=== PATIENT | male | born 1985 | race Caucasian/White ===

== ENCOUNTER 2016-11-18 11:44 | Inpatient (IN) | payer BC ==
[2016-11-18 11:47] VITALS: O2SAT 100
--- NOTE | 2016-11-18 11:54 | ED PDOC ---
Psych Transfer Clearance - Clearance Statement Clearance Statement: Reviewed vital signs, lab results and transfer papers. Patient clinically stable for psychiatric admission.
[2016-11-18] MEDS ORDERED: Magnesium Hydroxide Susp 30 ml UD PO PRN (12:25)
[2016-11-18] MEDS ORDERED: Alum-Mag Hydrox-Simethicone Susp (30 mL) PO PRN (12:25)
[2016-11-18] MEDS ORDERED: DiphenhydrAMINE 50 mg/ml Inj IM PRN (12:25)
--- NOTE | 2016-11-18 13:02 | PCM.PSYCH ---
Initial Psychiatric Evaluation - Initial Psychiatric Evaluation Type of Admission: Voluntary Legal Status: Capacity Chief Complaint (in patient's own words): "I'm anxious" Patient's Reaction to Hospitalization: HPI: 31 yo male transferred from [facility], presented w/ acute anxiety, disorganized behavior and paranoia, including reports that he believes that his food is being poisoned. Patient does reports feeling "stressed" and is worried about eating food because he believes he is being poisoned, but does not know by whom or why. He also reports washing his hands > 10 times a day, but denies other obsessive/compulsive thoughts. Denies depression/suicidal ideation/eliceo. Negative Assembler informed the patient that he would benefit from treatment with an antipsychotic. Patient states that he will not take any medications at this time because he does not believe he needs them. Decreased appetite/food intake due to paranoia. Collateral history from the chart from the father- Escobar Silva [phone] : "Pt's symptoms became in June 2016 in which PT has become increasingly more distractible, internally pre-occupied, "tense"/"irritable", with a decrease in sleep/appetite; More recently, Pt has had thoughts that his food has been poisoned, which has decreased his appetite and willingness to eat; Pt has also [exhibited] soem signs of compulsive behavior, in which PT has repeatedly walked in and out of the house without provocation; Pt has no known hx of suicide/homicide, substance abuse, nor violence; Pt does have a paternal aunt who may have a hx of "OCD" and a maternal uncle who has symptoms of "delusional" thinking." PPhx: Hx of treatment w/ Xanax. Outpatient tx w/ Dr. Aguilar (therapist) since 07/2016; No past psychiatric admissions MHx: None All: NKDA FHx: Possible family hx of OCD and psychosis SHx: Drinks etoh a few times/week; no h/o etoh withdrawal. No legal history. No history. Used marijuana twice in his life, no current illicit drug use. 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 Lives w/ parents and brother. Current Medications: Active Medications Generic Name Dose Route Start Last Admin Trade Name Freq PRN Reason Stop Dose Admin Acetaminophen 650 mg 11/18/16 12:25 Tylenol 325mg Tab PO Q4 PRN Pain, moderate (4-7) Al Hydrox/Mg Hydrox/Simethicone 30 ml 11/18/16 12:25 Maalox Plus 30 Ml PO Q4 PRN Dyspepsia Diphenhydramine HCl 50 mg 11/18/16 12:25 Benadryl IM Q6 PRN Extrapyramidal S/S Unable PO Diphenhydramine HCl 50 mg 11/18/16 12:25 Benadryl PO Q6 PRN Extrapyramidal Symptoms Haloperidol 5 mg 11/18/16 12:25 Haldol PO Q4 PRN Agitation Haloperidol Lactate 5 mg 11/18/16 12:25 Haldol IM Q4 PRN Agitation, Unable to Take PO Lorazepam 2 mg 11/18/16 12:25 Ativan IM Q4 PRN Anxiety/Agitation,Unable PO Lorazepam 2 mg 11/18/16 12:25 Ativan PO Q4 PRN Anxiety/Agitation Magnesium Hydroxide 30 ml 11/18/16 12:25 Milk Of Magnesia PO HS PRN Constipation Past Psychiatric History - Past Psychiatric History Previous Treatment History: None Pertinent Medical Hx (Current Medical&Sleep Prob, Allergies): Allergies Allergy/AdvReac Type Severity Reaction Status Date / Time Unobtainable Allergy Verified 11/18/16 11:53 Review of Systems - Review of Systems All systems: reviewed and no additional remarkable complaints except - Psychiatric Psychiatric: As Per HPI, Anxiety, Irritability, Paranoia Mental Status Examination - Personal Presentation Personal Presentation: Looks stated age - Affect Affect: Broad - Motor Activity Motor Activity: Calm - Reliability in Providing Information Reliability in Providing Information: Good - Speech Speech: Organized - Mood Mood: Anxious - Formal Thought Process Formal Thought Process: Delusions, Paranoia - Obsessions/Compulsions Obsessions: No Compulsions: No - Cognitive Functions Orientation: Person, Place, Situation, Time Sensorium: Alert Attention/Concentration: Attentive Estimate of Intelligence: Average Judgement: Imparied, as evidence by: Lack of insight into illness Memory: Recent intact, as evidence by: Ability to recall events of the day, Remote intact, as evidenced by: Abilit to recall sig. life events, Remote intact , as evidenced by: Ability to recall historical events - Strength & Assets Inventory Strength & Assets Inventory: Intelligence, Cooperative DSM 5 DX - DSM 5 DSM 5 Diagnosis: Psychosis unspecified, Anxiety unspecified - Recommended/Plan of Treatment Treatment Recommendations and Plan of Treatment: 31 yo male w/ no significant past psychiatric history, presents w/ paranoia and anxiety, w/ poor insight to his paranoia and need for medications. -Admit to psychiatry -Patient refusing to take psychotropic medications at this time, will continue to discuss with the patient -Medicine consult -Individual and group therapy -Obtain collateral history Projected ELOS: 4-7 days Discharge Plan and Discharge Criteria: Discharge when psychiatrically stable
--- NOTE | 2016-11-18 16:49 | CP.PCM.PCO ---
Physician Communication Note - Physician Communication Note Physician Communication Note: Patient did NOT want to be examined/evaluated and wants to Sign AMA
--- NOTE | 2016-11-19 10:57 | PCM.PYCHPN ---
Psychiatric Progress Note - Psychiatric Progress Note Patient seen today, length of contact: Patient evaluated, case discussed with team, chart reviewed Patient Chief Complaint: "Nothing is wrong with me" Problems Identified/Issues Discussed: Patient signed a 48 hour letter yesterday requesting discharge. He was perseverative about leaving, demanding that staff let him leave immediately. Security had to be called because the patient was agitated and aggressive, eventually he had to be given IM medication for acute agitation. This morning the patient continues to have poor insight into his paranoia and is demanding to leave. Patient was informed that he was be screened by [facility] [place] for possible involuntary admission. Medication Change: No (Patient refusing psychotropic medications) Medical Record Reviewed: Yes Consults ordered or reviewed: Patient refused to be evaluated by the medicine consult. Mental Status Examination - Cognitive Function Orientation: Person, Place, Situation, Time Memory: Intact Attention: WNL Concentration: WNL Association: [facility] Fund of Knowledge: [facility] Decription of patient's judgement and insights: Poor insight/judgment - Mood Mood: Anxious - Affect Affect: Broad - Speech Speech: Appropriate - Formal Thought Process Formal Thought Process: Delusions, Paranoia Psychotic Thoughts and Behaviors: +Continued paranoia - Suicidal Ideation Suicidal Ideation: No - Homicidal Ideation Homicidal Ideation: No Goal/Treatment Plan - Goal/Treatment Plan Need for Continued Stay: Remain at risks for inpatient hospitalization, Discharge may exacerbated symptoms Progress Toward Problem(s) and Goals/Treatment Plan: 31 yo male w/ no significant past psychiatric history, presents w/ paranoia and anxiety, w/ poor insight into his paranoia and need for medications. -Screen for involuntary admission -Patient refusing to take psychotropic medications at this time, will continue to discuss with the patient -Medicine consult refused by the patient -Individual and group therapy -Obtain collateral history
--- NOTE | 2016-11-20 13:16 | PCM.PYCHPN ---
Psychiatric Progress Note - Psychiatric Progress Note Patient seen today, length of contact: in treatment team Patient Chief Complaint: i want to leave Problems Identified/Issues Discussed: pt states he does not think he needs medications, nor does he need to be in the hospital. he seems to not have understood the meeting with [facility] screener and is unaware that he has been accepted there for further assessment. he is anxious, he was able to hear the explanation of his current status. he continues to minimize his symptoms/behaviors. he continues to refuse to consider medications. Medication Change: No (Patient refusing psychotropic medications) Medical Record Reviewed: Yes Mental Status Examination - Cognitive Function Orientation: Person, Place, Situation, Time Memory: Intact Attention: WNL Concentration: WNL Association: WNL Fund of Knowledge: [facility] Decription of patient's judgement and insights: poor insight. fair behavioral control - Mood Mood: Anxious - Affect Affect: Broad - Speech Speech: Appropriate - Formal Thought Process Formal Thought Process: Delusions, Paranoia - Suicidal Ideation Suicidal Ideation: No - Homicidal Ideation Homicidal Ideation: No Goal/Treatment Plan - Goal/Treatment Plan Need for Continued Stay: Remain at risks for inpatient hospitalization, Discharge may exacerbated symptoms Progress Toward Problem(s) and Goals/Treatment Plan: psychotic disorder, unspecified continue current treatment and encourage pt to take medications awaiting transfer to [facility] Estimated Date of D/C: 11/21/16
--- NOTE | 2016-11-21 11:06 | PCM.PYCHPN ---
Psychiatric Progress Note - Psychiatric Progress Note Patient seen today, length of contact: discussed with team Patient Chief Complaint: i want to leave Problems Identified/Issues Discussed: pt waiting for transfer to [facility]. he is still questioning why he is being transfered and minimizing his symptoms that lead to the admission. he is irritable at times. Medication Change: No (Patient refusing psychotropic medications) Medical Record Reviewed: Yes Mental Status Examination - Cognitive Function Orientation: Person, Place, Situation, Time Memory: Intact Attention: WNL Concentration: WNL Association: WNL Fund of Knowledge: WNL Decription of patient's judgement and insights: poor insight. fair behavioral control - Mood Mood: Anxious - Affect Affect: Broad - Speech Speech: Appropriate - Formal Thought Process Formal Thought Process: Delusions, Paranoia Psychotic Thoughts and Behaviors: iinternally preoccupied, paranoid - Suicidal Ideation Suicidal Ideation: No - Homicidal Ideation Homicidal Ideation: No Goal/Treatment Plan - Goal/Treatment Plan Need for Continued Stay: Remain at risks for inpatient hospitalization, Discharge may exacerbated symptoms Progress Toward Problem(s) and Goals/Treatment Plan: psychotic disorder, unspecified continue current treatment and encourage pt to take medications awaiting transfer to [facility] when bed is available Estimated Date of D/C: 11/21/16
--- NOTE | 2016-11-22 12:10 | PCM.PYCHPN ---
Psychiatric Progress Note - Psychiatric Progress Note Patient seen today, length of contact: discussed with team Patient Chief Complaint: i think i am getting better Problems Identified/Issues Discussed: met with pt and social media marketing manager. pt is less anxious. eating only food from home. he continues to feel "i only had just a bad week." and does not think he needs to take medication. he seems a bit more able to process information regarding the process of going to [facility]. he is participating in treatment groups on the unit. Medication Change: No (Patient refusing psychotropic medications) Medical Record Reviewed: Yes Mental Status Examination - Cognitive Function Orientation: Person, Place, Situation, Time Memory: Intact Attention: WNL Concentration: WNL Association: WNL Fund of Knowledge: WNL Decription of patient's judgement and insights: poor but improving insight. fair behavioral control - Mood Mood: Anxious - Affect Affect: Broad - Speech Speech: Appropriate - Formal Thought Process Formal Thought Process: Delusions, Paranoia Psychotic Thoughts and Behaviors: iinternally preoccupied, paranoid - Suicidal Ideation Suicidal Ideation: No - Homicidal Ideation Homicidal Ideation: No Goal/Treatment Plan - Goal/Treatment Plan Need for Continued Stay: Remain at risks for inpatient hospitalization, Discharge may exacerbated symptoms Progress Toward Problem(s) and Goals/Treatment Plan: psychotic disorder, unspecified continue current treatment and encourage pt to take medications awaiting transfer to [facility] when bed is available Estimated Date of D/C: 11/21/16
--- NOTE | 2016-11-24 10:30 | PCM.PYCHPN ---
Psychiatric Progress Note - Psychiatric Progress Note Patient seen today, length of contact: discussed with team Patient Chief Complaint: i feel the medicine inside my system Problems Identified/Issues Discussed: pt less anxious. states the medicine makes him feel a little tired and notes an improvement in his sleep. he is denying any other side effects. still paranoid, but seems a bit more comfortable around his peers. Medication Change: Yes (started risperdal) Medical Record Reviewed: Yes Mental Status Examination - Cognitive Function Orientation: Person, Place, Situation, Time Memory: Intact Attention: WNL Concentration: WNL Association: WNL Fund of Knowledge: WNL Decription of patient's judgement and insights: improved insight. fair judgment - Mood Mood: Anxious - Affect Affect: Broad - Speech Speech: Appropriate - Formal Thought Process Formal Thought Process: Delusions, Paranoia Psychotic Thoughts and Behaviors: paranoid - Suicidal Ideation Suicidal Ideation: No - Homicidal Ideation Homicidal Ideation: No Goal/Treatment Plan - Goal/Treatment Plan Need for Continued Stay: Remain at risks for inpatient hospitalization, Discharge may exacerbated symptoms Progress Toward Problem(s) and Goals/Treatment Plan: psychotic disorder, unspecified have started risperdal 0.25mg am /hs will increase tomorrow to 0.25/ 0.5mg encourage participation in groups disposition planning Estimated Date of D/C: 11/21/16
[2016-11-24 16:02] VITALS: TEMP 97.7
--- NOTE | 2016-11-25 10:13 | PCM.PYCHPN ---
Psychiatric Progress Note - Psychiatric Progress Note Patient seen today, length of contact: discussed with team Patient Chief Complaint: i feel a little better Problems Identified/Issues Discussed: pt now eating hospital food as well as the food from home. he is taking medications and denies side effects. he feels medication is helpful. he reports improved sleep. Medication Change: Yes (increase risperdal) Medical Record Reviewed: Yes Mental Status Examination - Cognitive Function Orientation: Person, Place, Situation, Time Memory: Intact Attention: WNL Concentration: WNL Association: WNL Fund of Knowledge: WNL Decription of patient's judgement and insights: improved insight. fair judgment - Mood Mood: Anxious - Affect Affect: Broad - Speech Speech: Appropriate - Formal Thought Process Formal Thought Process: Delusions, Paranoia Psychotic Thoughts and Behaviors: paranoid - Suicidal Ideation Suicidal Ideation: No - Homicidal Ideation Homicidal Ideation: No Goal/Treatment Plan - Goal/Treatment Plan Need for Continued Stay: Remain at risks for inpatient hospitalization, Discharge may exacerbated symptoms Progress Toward Problem(s) and Goals/Treatment Plan: psychotic disorder, unspecified increase tomorrow to 0.5mg by mouth twice daily encourage participation in groups disposition planning Estimated Date of D/C: 11/21/16
--- NOTE | 2016-11-26 10:54 | PCM.PYCHPN ---
Psychiatric Progress Note - Psychiatric Progress Note Patient seen today, length of contact: discussed with team Patient Chief Complaint: i feel it helping Problems Identified/Issues Discussed: pt with improved socialization, less anxious. appetite is improved. he has had good visits with family. no aggression. Medication Change: No ( ) Medical Record Reviewed: Yes Mental Status Examination - Cognitive Function Orientation: Person, Place, Situation, Time Memory: Intact Attention: WNL Concentration: WNL Association: WNL Fund of Knowledge: WNL Decription of patient's judgement and insights: improved insight. fair judgment - Mood Mood: Anxious - Affect Affect: Broad - Speech Speech: Appropriate - Formal Thought Process Formal Thought Process: Delusions, Paranoia Psychotic Thoughts and Behaviors: less paranoid - Suicidal Ideation Suicidal Ideation: No - Homicidal Ideation Homicidal Ideation: No Goal/Treatment Plan - Goal/Treatment Plan Need for Continued Stay: Remain at risks for inpatient hospitalization, Discharge may exacerbated symptoms Progress Toward Problem(s) and Goals/Treatment Plan: psychotic disorder, unspecified continue risperdal 0.5mg by mouth twice daily encourage participation in groups disposition planning Estimated Date of D/C: 11/21/16
[2016-11-27 09:44] VITALS: BP 128/75; PULSE 73; RESP 17
--- NOTE | 2016-11-27 13:04 | PCM.PYCHDC ---
Mental Status Examination - Mental Status Examination Orientation: Person, Place, Situation, Time Memory: Intact Mood: Anxious Affect: Broad Speech: Appropriate Attention: WNL Concentration: WNL Association: WNL Fund of Knowledge: WNL Formal Thought Process: No Impairment Description of patient's judgement and insight: good insight. good judgment Psychotic Thoughts and Behaviors: denies any a/v halluinations. less paranoid. less guarded and thoughts more organized Suicidal Ideation: No Current Homicidal Ideation?: No Plan: pt denies any suicidal or homicidal thoughts/plans or intent Discharge Summary - Discharge Note Reason for Hospitalization: severe anxiety, paranoid thoughts, decline in functioning. pt stopped eating. Psychiatric History (includes Medical, Family, Personal Hx): pt has been in therapy for anxiety. no previous psychiatric treatment Consultations:: List each consultation separately and include: 1. Reason for request. 2. Findings. 3. Follow-up Consultations: seen by the hospitalist Summary of Hospital Course include:: 1. Description of specific treatment plan utilized for patients during their course of treatmen. 2. Summarize the time- course for resolution of acute symptoms and/or regressed behaviors. 3. Describe issues identified and worked on during hospitalization. 4. Describe medication utilized. 5. Describe medical problems identified and treated. 6. Reassessment of suicide risk Summary of Hospital Course: pt was admitted to [facility] and oriented to the unit. he was placed on routine safety protocols. he was seen by the hospitalist and the treatment team. he initially was very resistant to being in the hospital and refusing treatment. he became loud and agitated at the nursing station and demanded to leave the hospital and was refusing all treatment. he was screened by [facility] for involuntary hospitalization and accepted to that facility, but no bed was available. the team continued to work with the pt and was in contact with his family and with his outpt therapist. the patient was encouraged to take antipsychotic medications to target his presenting symptoms. he did agree to take a low dose of risperdal and did allow the titration up to 0.5mg bid. as the pt was accepting treatment, his involuntary screening was cancelled and he was maintained on the unit. he exhibited improved clarity of thought, was sleeping better, was participating in treatment and eating food from the unit. he was agreeing to follow up with outpatient therapy. at time of discharge he was goal directed and future oriented and was denying any suicidal or homicidal thoughts/plan or intent. - Final Diagnosis (DSM 5) Condition upon Discharge: STABLE DSM 5: psychotic disorder unspecified Disposition: HOME/ ROUTINE Follow-up Treatment Plan: follow up with outpt providers as directed take medications as prescribed do not use alcohol, tobacco or other illicit substances call 911 if any suicidal or homicidal thoughts see your primary care doctor as needed Prescriptions/Medication Reconciliation: risperiDONE [RisperDAL Tab] 0.5 mg PO AMHS #60 tab - Smoking Cessation Smoking Cessation Medication prescribed: No - Antipsychotic Medications Pt discharged on 2 or more routine antipsychotic medications: No
== END 2016-11-27 16:17 | disposition home or self-care (01) | DRG 885 ==
LOC: H.ER 11:44 → H.ERHOLD 11:54 → H.PSYCH 12:54
PROVIDERS: ADMIT Psychiatry & Neurology Psychiatry; ATTEND Psychiatry & Neurology Psychiatry
PROC: GZ51ZZZ Individual Psychotherapy, Behavioral (ICD-10-PCS; 2016-11-18)
PROC: GZHZZZZ Group Psychotherapy (ICD-10-PCS; principal; 2016-11-20)
DX: F22 Delusional disorders (principal); F41.9 Anxiety disorder, unspecified